=== PATIENT | male | born 1990 | race Caucasian/White ===

== ENCOUNTER → 2017-01-14 | Outpatient (CLI) | payer OTHER ==
--- NOTE | 2017-01-14 16:12 | US ---
EXAMINATION TYPE: US kidneys/renal and bladder DATE OF EXAM: 01/14/2017 3:52 PM COMPARISON: NONE CLINICAL HISTORY: Dysuria R30.0. Dysuria x 1 week EXAM MEASUREMENTS: Right Kidney: 9.1 x 5.3 x 5.0 cm Left Kidney: 10.9 x 5.2 x 7.2 cm Right Kidney: wnl Left Kidney: wnl Bladder: wnl Bilateral Jets seen: yes There is no evidence for hydronephrosis at this point in time. No nephrolithiasis is seen. No greg s are identified. The urinary bladder is anechoic. Bilateral ureteral jets are seen. IMPRESSION: NORMAL RENAL ULTRASOUND.
== END | disposition home or self-care (01) ==
LOC: RADUSWWP 15:33
PROVIDERS: ATTEND Family Medicine
DX: R30.0 Dysuria (principal)
CPT/HCPCS: 76770

== ENCOUNTER → 2018-05-22 | Outpatient (CLI) | payer OTHER ==
--- NOTE | 2018-05-22 10:19 | US ---
EXAMINATION TYPE: US abdomen complete DATE OF EXAM: 05/22/2018 COMPARISON: US 2017 CLINICAL HISTORY: R10.9 abdominal pain. Patient states stomach issues x 1 year, occasional nausea. EXAM MEASUREMENTS: Liver Length: 13.7 cm Gallbladder Wall: 0.2 cm CBD: 0.5 cm Spleen: 9.8 cm Right Kidney: 9.5 x 4.7 x 6.0 cm Left Kidney: 10.1 x 6.3 x 5.0 cm Pancreas: limited by overlying midline bowel gas Liver: wnl Gallbladder: 2 small hyperechoic non mobile non shadowing foci along anterior wall, probable polyps Evidence for sonographic Carranza's sign: no CBD: wnl Spleen: visualized portions wnl, limited by overlying bowel gas Right Kidney: wnl Left Kidney: visualized portions wnl, limited by rib shadowing Upper IVC: wnl Abd Aorta: wnl The visualized liver is homogenous. The intrahepatic portion of the IVC and visualized abdominal aor ta are within normal limits. There is no evidence of shadowing mobile cholelithiasis. Suspect tiny gallbladder polyps. Common bile duct is unremarkable. The pancreas is suboptimally seen on images sa mya secondary to shadowing from overlying bowel gas. The spleen is unremarkable. Kidneys are symmet suhail and free of hydronephrosis. No renal lesions are seen on images saved. IMPRESSION: No suspicious finding seen to account for patient's symptoms of pain and occasional nause a.
== END | disposition home or self-care (01) ==
LOC: RADUSWWP 09:24
PROVIDERS: ATTEND Family Medicine
DX: R10.9 Unspecified abdominal pain (principal)
CPT/HCPCS: 76700

== ENCOUNTER 2018-08-22 12:05 | Day surgery (SDC) | payer OTHER ==
[2018-08-18 09:31] VITALS: BMI 26.6
[~2018-08-22 12:05] MED LIST: LACTATED RINGERS 1,000 ML IV SCH; LIDOCAINE 1% 20 ML VIAL (10MG/ML) FOR IV START INTRADERMA PRN
[2018-08-22 13:16] VITALS: TEMP 98.4
[2018-08-22] MEDS ORDERED: MIDAZOLAM 2 MG/2 ML VIAL ONE (14:30)
[2018-08-22] MEDS ORDERED: fentaNYL (PF) 50 MCG/ML 2 ML AMP ONE (14:30)
[2018-08-22] MEDS ORDERED: LIDOCAINE 1% INJ 10MG/ML (20 ML MDV) ONE (14:30)
[2018-08-22] MEDS ORDERED: PROPOFOL 10 MG/ML 20 ML VIAL IV ONE (14:30)
[2018-08-22 14:52] VITALS: RESP 18
--- NOTE | 2018-08-22 15:11 | P.PCN ---
Date of Procedure: 08/22/18 Procedure(s) Performed: Procedure: Colonoscopy and biopsy. Preoperative diagnosis: Chronic diarrhea. Postoperative diagnosis: Exam of the colon and terminal ileum within normal limits. Preparation: HalfLytely prep. Sedation: Was provided by anesthesia. Brief clinical history: The patient is a 27-year-old male who has been experiencing diarrhea for the last couple years. No extraintestinal manifestations of inflammatory bowel disease or any other alarm symptoms. There is family history of Crohn's disease in a cousin. Procedure: With the patient on his left lateral decubitus position and after informed consent and adequate sedation, the perianal area was inspected and it did not show any fissures or fistulas. There were no masses felt on digital rectal examination. The Olympus CFQ 160L video colonoscope was then inserted in the rectum in the usual fashion and advanced to the cecum. The ileocecal valve was intubated and the terminal ileum examined. Terminal ileum and colon appeared healthy with no edema, erythema, friability, ulceration, exudation or spontaneous bleeding. No polyps or tumors were seen or any obvious diverticular disease or other pathology. I obtained biopsies from the terminal ileum and right colon then I retroflexed the endoscope in the rectum before the endoscope was withdrawn. The patient tolerated the procedure well. Plan: The patient was reassured. He will follow up with you as planned and further plans can be made based on his course. I would be happy to see in the office if his symptoms persist.
[2018-08-22 15:16] VITALS: BP 123/76; PULSE 64
== END 2018-08-22 15:35 | disposition home or self-care (01) ==
LOC: ORWHC2ENDO 12:05
DX: K52.9 Noninfective gastroenteritis and colitis, unspecified (principal); Z88.0 Allergy status to penicillin
CPT/HCPCS: 88305; 45380; J2250; J2001; J3010; J2704

== ENCOUNTER → 2019-02-28 | Outpatient (CLI) | payer SELFPAY ==
--- NOTE | 2019-02-28 14:40 | US ---
EXAMINATION TYPE: US scrotum with doppler. TECHNIQUE: Grayscale and color Doppler Duplex imaging performed of the scrotum. DATE OF EXAM: 02/28/2019 COMPARISON: NONE CLINICAL HISTORY: 28-year-old male N50.819 Testicular pain. Right testicular ache x 6 weeks FINDINGS: EXAM MEASUREMENTS: TESTICLES: Right Testicle: 3.8 x 2.0 x 2.7 cm Left Testicle: 3.9 x 2.2 x 2.8 cm Both testicles show normal homogeneous appearance without hyperemia. EPIDIDYMIS HEAD: Right Epididymis: 0.8 x 1.0 x 0.9 cm Left Epididymis: 0.7 x 1.0 x 0.8 cm Doppler performed to assess for testicular vascularity; good bilateral color flow and waveforms are s een. There is no evidence of testicular torsion. Presence of hydroceles: Small bilaterally Presence of varicoceles: no IMPRESSION: 1. Small bilateral hydroceles. 2. No evidence for testicular torsion.
== END | disposition home or self-care (01) ==
LOC: RADUSWWP 13:27
PROVIDERS: ATTEND Family Medicine
DX: N43.3 Hydrocele, unspecified (principal)
CPT/HCPCS: 76870; 93975

== ENCOUNTER 2023-12-15 06:39 | Day surgery (SDC) | payer BC ==
--- NOTE | 2023-12-15 06:40 | P.GSHP ---
History of Present Illness H&P Date: 12/15/23 CHIEF COMPLAINT: Rectal bleeding. HISTORY OF PRESENT ILLNESS: The patient is a 33-year-old male who presents for rectal bleeding over 6 month. Lower endoscopy was offered for further evaluation and management. PAST MEDICAL HISTORY: Please see list. PAST SURGICAL HISTORY: Please see list. MEDICATIONS: Please see list. ALLERGIES: Please see list. SOCIAL HISTORY: No illicit drug use FAMILY HISTORY: No reports of Crohn disease or ulcerative colitis. REVIEW OF ORGAN SYSTEMS: CONSTITUTIONAL: No reports of fevers or chills. PHYSICAL EXAM: VITAL SIGNS: Stable GENERAL: Well-developed pleasant in no acute distress. HEENT: No scleral icterus. Extraocular movements grossly intact. Moist buccal mucosa. NECK: Supple without lymphadenopathy. CHEST: Unlabored respirations. Equal bilateral excursions. CARDIOVASCULAR: Regular rate and rhythm. Distal 2+ pulses. ABDOMEN: Soft, nontender, nondistended. MUSCULOSKELETAL: No clubbing, cyanosis, or edema. ASSESSMENT: 1. Rectal bleeding. 2. Rectal pain. PLAN: 1. He has a combination of what sounds like fissures including symptomatic hemorrhoids. However, with the family history of Crohn's disease, additional assessment is advised. Risk of adenomas and tumors were also reviewed. Colonoscopy was advised. 2. GoLytely prep was reviewed. Past Medical History Past Medical History: No Reported History Additional Past Medical History / Comment(s): rectal bleeding prompted colonoscopy History of Any Multi-Drug Resistant Organisms: None Reported Past Surgical History: Appendectomy Past Anesthesia/Blood Transfusion Reactions: No Reported Reaction Smoking Status: Never smoker - Past Family History Mother Family Medical History: No Reported History Medications and Allergies Home Medications Medication Instructions Recorded Confirmed Type No Known Home Medications 08/18/18 12/13/23 History Allergies Allergy/AdvReac Type Severity Reaction Status Date / Time Penicillins Allergy Unknown Verified 12/13/23 11:06 Childhood
[2023-12-15 07:22] VITALS: RESP 16; TEMP 97.8
[2023-12-15] MEDS: LACTATED RINGERS 1,000 ML IV ONE (07:22)
[2023-12-15] MEDS ORDERED: LIDOCAINE 1% INJ 10MG/ML (20 ML MDV) ONE (07:27)
[2023-12-15] MEDS ORDERED: PROPOFOL 10 MG/ML 20 ML VIAL IV ONE (07:27)
[2023-12-15] MEDS: IV FLUID CONTINUATION 1,000 ML IV ONE (07:41)
--- NOTE | 2023-12-15 07:45 | P.PCN ---
Date of Procedure: 12/15/23 Description of Procedure: PREOPERATIVE DIAGNOSIS: Rectal bleeding POSTOPERATIVE DIAGNOSIS: Internal hemorrhoids, grade 2 OPERATION: Colonoscopy to the cecum, ileocecal valve and appendiceal orifice. SURGEON: Paola Zaragoza MD. ANESTHESIA: MAC. INDICATIONS: The patient is a 33-year-old male who presents with rectal bleeding. Benefits and risks were described and informed consent was obtained. DESCRIPTION OF PROCEDURE: The patient had undergone GoLytely prep. The patient had been brought into the operating room and laid in the left lateral decubitus position. After adequate intravenous sedation, the rectum was examined with 2% lidocaine jelly. No external hemorrhoids were encountered. The rectal tone was within normal limits. No lesions were palpated in the rectal vault. An Olympus colonoscope was advanced until the cecum, ileocecal valve and appendiceal orifice were clearly viewed. The prep was excellent. No scattered diverticulosis was encountered. No colonic polyps were found. Retroflexion of the scope demonstrated grade 2 internal hemorrhoids without active bleeding or inflammation. The colon was desufflated. The patient had tolerated the procedure well. Withdrawal time was over 6 minutes. FINDINGS: Aronchick preparation quality scale 1 (1-5) Internal hemorrhoids, grade 2 without bleeding No external prolapsed hemorrhoids. No arteriovenous malformations. No adenomatous polyps. RECOMMENDATIONS: Repeat colonoscopy 10 years2033 Plan - Discharge Summary New Discharge Prescriptions: No Action No Known Home Medications Discharge Medication List No Known Home Medications 08/18/18 [History] Follow up Appointment(s)/Referral(s): Paola Zaragoza MD [STAFF PHYSICIAN] - 01/10/24 4:15 pm Patient Instructions/Handouts: *Surgery [facility] - (Anesthesia) Discharge Instructions Outpatient Surgery, Colonoscopy (DC) Activity/Diet/Wound Care/Special Instructions: Colonoscopy in 10 years2033 Discharge Disposition: HOME SELF-CARE
[2023-12-15 08:25] VITALS: BP 143/87; PULSE 60
== END 2023-12-15 08:11 | disposition home or self-care (01) ==
LOC: ORWHC2ENDO 06:39
PROVIDERS: ATTEND Surgery Plastic and Reconstructive Surgery
DX: K64.1 Second degree hemorrhoids (principal); Z88.0 Allergy status to penicillin; Z90.49 Acquired absence of other specified parts of digestive tract
CPT/HCPCS: 88305; 45380; J2001; J2704; 45378